=== PATIENT | female | born 1935 | race Caucasian/White ===

== ENCOUNTER → 2016-06-03 | Outpatient (CLI) | payer MEDICARE, BC ==
[~2016-06-03] MED LIST: ALEVE220 M1 PO; ALTOPREV40 MG PO; ASPIRIN PO; ASPIRIN81 M2 PO; ATIVAN0.5 M1 PO; CALCIUM 500 +1 EACH PO; CENTRUM SILVER PO; FLEXERIL PO; MULTIVITAMIN W-1 TAB PO; NAPROXEN PO; NORVASC PO; OMEGA FISH OIL; TORADOL10 MG PO; TRICOR PO
--- NOTE | ~2016-06-03 | CT134 ---
[facility] A Service of [facility] & [facility] RADIOLOGY TEXT RESULTS PATIENT: KIMBERLYN SHELTON LOCATION: [facility] : 33 UNIT #: [id number] AGE: [address]: Jelani Austin MD SEX: F ORDER DR: [id number] [facility] [address] [place], [place] [address] [id number] O MR#: [id number] [facility] #: [id number] NAME: KIMBERLYN SHELTON : 1935 SEX: F STUDY DATE/TIME: 06/03/2016 10:00 UNIT: [facility] ROOM: STUDY DESCRIPTION: CT Guide Attending Physician: Jelani Austin M.D. Ordering Physician: Jelani Austin M.D. Primary Care Physician: Joel Martin M.D. MEDICAL IMAGING REPORT This report is preliminary unless electronic signature is present EXAM CT-guided bone marrow biopsy INDICATION Anemia. TECHNIQUE This CT examination was performed with one or more of the following radiation dose reduction techniques: automatic exposure control, adjustment of mA and/or kV according to patient size, and iterative reconstruction. PROCEDURE The risks, benefits, and alternatives to the procedure were explained to the patient, and signed, informed consent was obtained. She was placed prone on the CT scanner gantry. Preliminary CT scan was performed through the region of interest. An appropriate site overlying the patient's left iliac bone was selected. The overlying skin was marked. Patient was prepped and draped in the usual sterile fashion. Time-out was performed as per protocol. Skin and subcutaneous tissues were anesthetize with buffered Lidocaine and bone marrow biopsy needle was advanced into the left iliac bone. Repeat CT scan confirmed appropriate trajectory of the needle which was subsequently advanced into the bone marrow. Bone marrow aspirate was obtained. Needle was then advanced further into the bone marrow and removed which yielded an adequate core sample. Manual pressure was applied until hemostasis was obtained. Patient tolerated the procedure well. There were no immediate complications. She did receive conscious sedation consisting of 3 mg of Versed and 125 mcg of Fentanyl. Continuous monitoring was provided throughout the procedure. IMPRESSION Technically successful bone marrow biopsy and aspiration as noted above. CT was used during the procedure and permanent images were saved. [facility] A Service of [facility] & [facility] RADIOLOGY TEXT RESULTS PATIENT: KIMBERLYN SHELTON LOCATION: [facility] : 33 UNIT #: [id number] AGE: [address]: Jelani Austin MD SEX: F ORDER DR: Dictated by... Kristi Martin M.D. THIS IS AN ELECTRONICALLY VERIFIED REPORT Kristi Martin M.D. at 06/04/2016 4:39 PM KI/jo TD: 06/04/2016 10:56 JOB #: [id number] MEDICAL IMAGING REPORT COPY
[2016-06-03 08:14] LABS: HEMATOCRIT 29.1 % (35.0-45.0); HEMOGLOBIN 9.4 gm/dL (12.0-16.0); MEAN CELL VOLUME 86.9 FL (83-96); MEAN CORPUSCULAR HEMOGLOBIN 28.2 PG (28-34); MEAN CORPUSCULAR HGB CONC 32.5 g/dL (30-36); MEAN PLATELET VOLUME 8.3 FL (6.5-11.5); RED BLOOD COUNT 3.35 X10e (3.90-5.30); RED CELL DISTRIBUTION WIDTH 27.5 % (11.0-15.5); WHITE BLOOD COUNT 12.3 X10e3 (4.0-10.5)
[2016-06-03 08:33] LABS: PARTIAL THROMBOPLASTIN TIME 24.4 SECONDS (23.5-31.3); PROTHROMBIN TIME (PATIENT) 10.1 SECONDS (9.6-11.5)
== END | disposition home or self-care (01) ==
LOC: CIVR 07:46
PROVIDERS: Internal Medicine Medical Oncology
DX: D64.9 Anemia, unspecified (principal); D72.829 Elevated white blood cell count, unspecified; Z88.5 Allergy status to narcotic agent
CPT/HCPCS: 38221; G0364; 36415; 77012; 85027; 85610; 85730; 88237; 88264; 88271; 88275; 88305; 88311; 88313; 99144; 99152; 99153; J2250; J3010